=== PATIENT | male | born 1980 | race Caucasian/White ===

== ENCOUNTER 2016-04-10 22:16 | Emergency (ER) | payer BC ==
[~2016-04-10] VITALS: Ht 180.3 cm; Wt 116.5 kg
[2016-04-10 22:21] VITALS: Ht 180.3 cm; Wt 116.5 kg
[2016-04-11 00:05] LABS: URINE BLOOD (Dip) POC 3+ (NEGATIVE)
[2016-04-11] MEDS ORDERED: BACTDS PO (00:24)
--- NOTE | 2016-04-11 00:30 | ERD ---
ER Documentation Chief Complaint Date/Time DATE: 04/11/16 TIME: 00:26 Chief Complaint blood in urine that started today HPI This is a 36-year-old male presents to the ER with urinary frequency and dysuria that started yesterday. Today patient states that he felt blood in his urine. Patient denies any flank pain. He denies any nausea vomiting or diarrhea. Patient did have a fever earlier today. He denies any pelvic pain. Patient denies penile discharge. He denies any testicular pain. ROS 12 point review of systems was done, all negative except per HPI. Medications Home Meds Active Scripts Sulfamethoxazole-Trimethoprim* (Bactrim* DS) 800-160 Mg Tab, 1 TAB PO BID for 10 Days, TAB Prov:MARCEL FARFAN Bel 04/11/16 Allergies Allergies: Coded Allergies: No Known Allergy (Unverified , 04/10/16) PMhx/Soc Medical and Surgical Hx: pt denies Medical Hx, pt denies Surgical Hx Hx Alcohol Use: No Hx Substance Use: No Hx Tobacco Use: No Smoking Status: Former smoker Physical Exam Vitals Vital Signs Date Time Temp Pulse Resp B/P Pulse Ox O2 Delivery O2 Flow Rate FiO2 04/10/16 22:21 98.9 111 18 145/95 97 Physical Exam GENERAL: The patient is well developed and appropriate for usual state of health , in no apparent distress. HEENT: Atraumatic. CHEST: Clear to auscultation bilaterally. There are no rales, wheezes or rhonchi. HEART: Regular rate and rhythm. No murmurs, clicks, rubs or gallops. ABDOMEN: Soft, nontender and nondistended. Good bowel sounds. No rebound or guarding. No gross peritonitis. No gross organomegaly or masses. No Berger sign or McBurney point tenderness. BACK: No midline or flank tenderness. no cva tenderness. NEURO: Alert and oriented. Results 24 hrs Laboratory Tests Test 04/11/16 00:04 Bedside Urine Blood 3+ Bedside Urine Glucose (UA) Negative Bedside Urine Ketones (LAB) Negative Bedside Urine Leukocyte Esterase (L 3+ Bedside Urine Nitrite (LAB) Negative Bedside Urine Protein (LAB) 2+ Bedside Urine pH (LAB) 6.0 Procedures/MDM This is a male presents today with urinary frequency and dysuria. This includes but is not limited to UTI, pyelonephritis, nephrolithiasis, septic stone, obstructive stone. This is likely urinary tract infection. Suspicion for pyelonephritis is low. Patient denies any leg pain he is a well-appearing and afebrile. Suspicion for nephrolithiasis and low as he does not have any flank pain. Patient will be sent home with Bactrim. He is to follow-up with his primary care doctor within 1-2 days or return to ER sooner if symptoms worsen. My Medical decision making shared with the patient he understands and agrees with plan Departure Diagnosis: Primary Impression: UTI (urinary tract infection) Condition: Stable Patient Instructions: Understanding Urinary Tract Infections (UTIs) Additional Instructions: Llame al doctor MAANA y kenyon heather ALINE PARA DENTRO DE 1-2 LIRA.Dgale a la secretaria que nosotros le instruimos hacer esta aline.Avise o llame si nicholson condicin se empeora antes de la aline. Regresa aqui si peor o no mejor. MARCEL FARFAN Apr 11, 2016 00:29
== END 2016-04-11 00:32 | disposition home or self-care (01) ==
LOC: FTE 22:16
DX: N39.0 Urinary tract infection, site not specified (principal); Z87.891 Personal history of nicotine dependence
CPT/HCPCS: 81003; 99283